=== PATIENT | female | born 1950 | race Caucasian/White ===

== ENCOUNTER 2018-06-14 12:57 | Day surgery (SDC) | payer MEDICARE ==
[2018-06-11 10:34] VITALS: BMI 24.4
[~2018-06-14 12:57] MED LIST: DEXAMETHASONE SOD PHOSPHATE 10 MG/ML 1 ML VIAL IV ONE; LACTATED RINGERS 1,000 ML IV SCH; MIDAZOLAM 2 MG/2 ML VIAL IV PRN; ONDANSETRON 4 MG/2 ML VIAL IVP ONE; ceFAZolin IN SWFI 2 GM/20 ML SYRINGE IVP ONE; fentaNYL (PF) 50 MCG/ML 2 ML AMP IV PRN
--- NOTE | 2018-06-14 15:38 | P.ONQ ---
Anesthesiology Proc Note - PNB - Peripheral Nerve Block Performed Left Supraclavicular Single Procedure Start Time: 13:49 Procedure Stop Time: 14:00 Indication: Analgesia, Requested by physician Specifically requested for management of pain by : Baudilio Webb Sedation Type: Sedate with meaningful contact maintained Preparation: Sterile Prep Position: Supine Needle Size: 50mm (2") (pumohank) Needle Gauge: 21 Technique: Ultrasound Injectate: 0.5% Ropivacaine (see comment for volume) (20 ml) Blood Aspirated: No Pain Paresthesia on Injection Noted: No Resistance on Injection: Normal Events: Uneventful and Well Tolerated
[2018-06-14] MEDS ORDERED: PROPOFOL 10 MG/ML 20 ML VIAL IV ONE (15:58)
[2018-06-14] MEDS ORDERED: LIDOCAINE 1% INJ 10MG/ML (20 ML MDV) ONE (15:58)
[2018-06-14] MEDS ORDERED: ePHEDrine SULFATE/0.9% NACL/PF 50 MG/5 ML SYRINGE IV ONE (15:58)
[2018-06-14] MEDS ORDERED: fentaNYL (PF) 50 MCG/ML 2 ML AMP ONE (15:58)
[2018-06-14] MEDS ORDERED: SUCCINYLCHOLINE CHLORIDE 100 MG/5 ML SYR IV ONE (15:58)
[2018-06-14] MEDS ORDERED: MIDAZOLAM 2 MG/2 ML VIAL ONE (15:58)
[2018-06-14] MEDS ORDERED: GLYCOPYRROLATE 0.2 MG/ML 2 ML VIAL ONE (15:58)
[2018-06-14] MEDS ORDERED: BUPIVACAIN-EPI 0.25%-1:200,000 30 ML VIAL SQ ONE (17:24)
[2018-06-14 18:02] VITALS: TEMP 98
[2018-06-14 18:31] VITALS: RESP 18
--- NOTE | 2018-06-14 19:01 | XR ---
EXAMINATION TYPE: XR wrist limited LT, FL guidance operating room DATE OF EXAM: 06/14/2018 CLINICAL HISTORY: ORIF of the left wrist. Fluoroscopy documentation. TECHNIQUE: Fluoroscopy. COMPARISON: None. FINDINGS: Fluoroscopic guidance was provided during procedure performed by Dr. Galvin. A total o f 19 seconds of fluoroscopic time was utilized during the procedure and 4 spot images was acquired du ring an open reduction internal fixation of the left wrist. IMPRESSION: As Above.
[2018-06-14 19:10] VITALS: BP 114/67; PULSE 63
--- NOTE | 2018-06-16 11:29 | P.OP ---
Date of Procedure: 06/14/18 Preoperative Diagnosis: Displaced left distal radius fracture Postoperative Diagnosis: Displaced left distal radius fracture Procedure(s) Performed: Open reduction and internal fixation of extra-articular left distal radius fracture Implants: Biomet Crosslock DVR locking volar radius plate Anesthesia: veronica MCMILLAN Surgeon: Baudilio Webb Business Relations Manager #1: Leticia Casarez Estimated Blood Loss (ml): 10 Pathology: none sent Condition: stable Disposition: PACU Indications for Procedure: The patient is a 67 year-old female who sustained a traumatic injury to her left wrist, resulting in a displaced distal radius fracture. Surgical treatment was recommended. Risks and benefits were discussed in the office; she expressed understanding and wished to proceed with surgery. The operative site was confirmed and marked preoperatively. Description of Procedure: After informed consent was obtained, the patient was administered a regional nerve block by the anesthesia team then brought to the operating suite. She was placed on the operating table in the supine position with the operative limb on an arm board. All bony prominences were well padded. General anesthesia was administered uneventfully. Prophylactic antibiotics were administered. A tourniquet was placed on the left upper arm which was then prepped and draped in usual sterile fashion. A timeout was performed which confirmed the patient, the operative side, the site and the procedure to be performed. All team members expressed agreement. The limb was exsanguinated with an Esmarch and the tourniquet was inflated. A standard volar FCR approach was utilized. The skin was incised sharply and subcutaneous tissue were spread, coagulating superficial vessels as needed. The FCR sheath was incised and the tendon was mobilized. Blunt dissection was used and the pronator quadratus was identified. This was sharply released along its radial border and & elevated ulnarly. The fracture site was identified, running transversely across the metaphysis with mild comminution noted along the radial cortex. Manual reduction was attempted but residual deformity remained. A [place] elevator was used to gently release the fracture callous and impacted dorsal fragments. The reduction maneuver was repeated and satisfactory initial alignment was confirmed with fluoroscopy. The appropriate plate was selected based on the patients fracture pattern and anatomy. The plate was positioned on the volar radius and provisionally pinned in place. The plate position was confirmed on imaging and found to be satisfactory. A cortical screw was drilled , measured and inserted into the oblong hole of the shaft. Locking screws were drilled, measured and inserted distally, confirming length and trajectory with fluoroscopy. The provisional K-wires were removed. An additional cortical screw was drilled and inserted to secure the plate to the metaphysis. Final x-rays were obtained, which revealed good reduction of the fracture. A 20-degree inclined lateral view was obtained to confirm extra-articular screw placement. The wrist was then ranged under live fluoroscopy and no motion of the fracture fragments or fixation construct was appreciated. The tourniquet was released and good hemostasis was obtained with electrocautery. The wound was copiously irrigated. The subcutaneous tissues were reapproximated with 3-0 Vicryl suture. The incision was closed with interrupted 4-0 nylon suture. Marcaine with epinephrine was injected into the perioperative subcutaneous tissues for postoperative pain control and hemostasis. A sterile dressing was applied followed by a resting volar splint. All sponge and needle counts were correct at the end of the case. The patient tolerated the procedure well. Anesthesia was reversed uneventfully and she was taken to the recovery room in stable condition.
== END 2018-06-14 19:14 | disposition home or self-care (01) ==
LOC: OR 12:57
PROVIDERS: ATTEND Orthopaedic Surgery
DX: S52.552A Other extraarticular fracture of lower end of left radius, initial encounter for closed fracture (principal); W19.XXXA Unspecified fall, initial encounter; I11.9 Hypertensive heart disease without heart failure; E03.9 Hypothyroidism, unspecified; H91.90 Unspecified hearing loss, unspecified ear; I48.91 Unspecified atrial fibrillation; Z79.01 Long term (current) use of anticoagulants; Z79.82 Long term (current) use of aspirin; Z79.890 Hormone replacement therapy; Z79.899 Other long term (current) drug therapy; Z88.1 Allergy status to other antibiotic agents; Z88.5 Allergy status to narcotic agent; Z88.0 Allergy status to penicillin; Z88.2 Allergy status to sulfonamides; Z86.718 Personal history of other venous thrombosis and embolism; Z87.891 Personal history of nicotine dependence
CPT/HCPCS: 25607; 73100; 64413; C1713; J2250; J1100; J2405; J2001; J3010; J0330; J2704; J0690; 64490

== ENCOUNTER → 2020-06-18 | Outpatient (CLI) | payer MEDICARE ==
--- NOTE | 2020-06-18 14:22 | CT ---
EXAMINATION TYPE: CT knee LT wo con DATE OF EXAM: 06/18/2020 COMPARISON: No prior HISTORY: Left knee pain post injury CT DLP: 399.6 mGycm Automated exposure control for dose reduction was used. FINDINGS: There appears to be a lipohemarthrosis involving the suprapatellar bursa. There is a comminuted displ aced fracture of the patella with significant soft tissue edema or hematoma. Narrowing of the medial compartment of the knee joint with chondrocalcinosis compatible with either o steoarthritis or depositional arthropathy. No erosive changes. Mild diffuse osteopenia. No additional areas of acute fracture. IMPRESSION: DISPLACED COMMINUTED FRACTURE OF THE PATELLA WITH LARGE AREA OF SOFT TISSUE EDEMA OR HEMATOMA. HEMORR HAGIC COMPONENT TO THE SUPRAPATELLAR BURSAL FLUID COLLECTION ALSO SUSPECTED. CORRELATE CLINICALLY.
== END | disposition home or self-care (01) ==
LOC: RADCTMAIN 12:11
PROVIDERS: ATTEND Orthopaedic Surgery
DX: S82.042A Displaced comminuted fracture of left patella, initial encounter for closed fracture (principal)

== ENCOUNTER 2020-06-25 11:06 | Day surgery (SDC) | payer MEDICARE ==
[2020-06-22 12:07] VITALS: BMI 24.4
[~2020-06-25 11:06] MED LIST changes: -DEXAMETHASONE SOD PHOSPHATE 10 MG/ML 1 ML VIAL IV ONE; +DEXAMETHASONE SOD PHOSPHATE 4 MG/ML 1 ML VIAL IV ONE; +Pre Op ABX Message 1 EACH MISC MISCELLANE ONE; -ceFAZolin IN SWFI 2 GM/20 ML SYRINGE IVP ONE
[2020-06-25 11:56] LABS: HCT 26.9 % (34.0-46.0); HGB 8.8 gm/dL (11.4-16.0); MCH 29.8 pg (25.0-35.0); MCHC 32.6 g/dL (31.0-37.0); MCV 91.5 fL (80.0-100.0); Mean Platelet Volume 8.7; Platelet Count 245 k/uL (150-450); RBC 2.95 m/uL (3.80-5.40); RDW 15.2 % (11.5-15.5); WBC 6.6 k/uL (3.8-10.6)
[2020-06-25 12:04] LABS: Calcium 10.5 mg/dL (8.4-10.2); Potassium 4.1 mmol/L (3.5-5.1)
[2020-06-25] MEDS ORDERED: fentaNYL (PF) 50 MCG/ML 2 ML AMP ONE (12:09)
[2020-06-25] MEDS ORDERED: PROPOFOL 10 MG/ML 20 ML VIAL IV ONE (12:09)
[2020-06-25] MEDS ORDERED: HYDROmorphone (PF) 1 MG/ML ONE (12:09)
[2020-06-25] MEDS ORDERED: SUCCINYLCHOLINE CHLORIDE 100 MG/5 ML SYR IV ONE (12:09)
[2020-06-25] MEDS ORDERED: ROPIVACAINE 5 MG/ML 30 ML VIAL ONE (12:09)
[2020-06-25] MEDS ORDERED: ePHEDrine SULFATE/0.9% NACL/PF 50 MG/5 ML SYRINGE IV ONE (12:09)
[2020-06-25] MEDS ORDERED: LIDOCAINE 1% INJ 10MG/ML (20 ML MDV) ONE (12:09)
[2020-06-25] MEDS ORDERED: ceFAZolin 1,000 MG in SODIUM CHLORIDE 0.9% 1,000 ML IRRIGATION ONE (13:39)
[2020-06-25] MEDS ORDERED: LACTATED RINGERS 1,000 ML IV ONE (13:54)
[2020-06-25] MEDS ORDERED: ONDANSETRON 4 MG/2 ML VIAL IVP ONE (14:19)
[2020-06-25 14:27] VITALS: TEMP 97.5
[2020-06-25] MEDS ORDERED: HYDROmorphone 0.5 MG/0.5 ML SYRINGE IVP ONE (14:40)
--- NOTE | 2020-06-25 15:26 | P.ANPRN ---
Procedure Note - Anesthesia - Nerve Block Performed Left Adductor Canal Single Time Out Performed: Yes Date of Procedure: 06/25/20 Procedure Start Time: 15:14 Procedure Stop Time: 15:22 Location of Patient: Phase I Indication: Acute Post-Operative Pain, Requested by Surgeon Specifically requested for management of pain by DrJoe: Armando Benitez Sedation Type: Awake Preparation: Sterile Prep Position: Supine Needle Types: Pajunk Needle Gauge: 21 Ultrasound used to visualize needle placement: Yes Ultrasound used to observe medication spread: Yes Injectate: 0.5% Ropivacaine (see comment for volume) (20 ml plus dexamethason 4 mg) Blood Aspirated: No Pain Paresthesia on Injection Noted: No Resistance on Injection: Normal Image Stored and Saved: Yes Events: Uneventful and Well Tolerated
--- NOTE | 2020-06-25 16:06 | XR ---
EXAMINATION TYPE: XR knee limited LT DATE OF EXAM: 06/25/2020 COMPARISON: NONE TECHNIQUE: Two views submitted HISTORY: Post op FINDINGS: 2 images demonstrate a surgical instrument adjacent to a fracture of the patella. Resolution limited. IMPRESSION: 1. Intraoperative image
[2020-06-25 16:14] VITALS: BP 119/59; PULSE 77; RESP 18
--- NOTE | 2020-06-25 16:25 | P.OP ---
Date of Procedure: 06/25/20 Procedure(s) Performed: PREOPERATIVE DIAGNOSES: 1. Left knee comminuted displaced patellar fracture; 2. Severe osteoporosis POSTOPERATIVE DIAGNOSES: 1. Left knee comminuted displaced patellar fracture; 2. Severe osteoporosis PROCEDURES PERFORMED: 1. Left knee patellar fracture open reduction and internal fixation (fiber tape tension band fixation) ANESTHESIA: Gen. HYDROGRAPHY TEACHER: Arin Perdue PA-C (assistance with exposure, hemostasis, retraction, fixation, closure, dressing, splint) COMPLICATIONS: None ESTIMATED BLOOD LOSS: Less than 25 mL. DISPOSITION: To post-anesthesia care unit INDICATIONS: Mrs. Chun is a 69-year-old female with a history of falling and sustaining a severe comminuted fracture of left patella. Preoperative CT scanning has shown a comminuted fracture with significant displacement. The fracture is displaced by 3 cm and there is functional disruption of the extensor mechanism. We have discussed open reduction and internal fixation of the patella in detail in the office and the patient wishes to proceed. I have discussed potential risks and complications as per the preoperative office note. The consent form has been signed. PROCEDURE: After appropriate consent was obtained, the patient was taken to the operating room placed in the supine position. Anesthesia was initiated, and after confirmation of adequate anesthesia, the patient was carefully positioned. Care was taken to make sure that all pressure points were adequately padded. Prepping and draping were completed in the usual aseptic fashion using ChloraPrep. Timeout was called, confirming patient identity, side, procedure, and administration of antibiotics. A pneumo tourniquet was used high on the left thigh. The limb was exsanguinated with an Esmarch bandage and the tourniquet was then inflated to 250 mmHg. Midline longitudinal incision was created directly over the patella for a distance of approximately 5 inches. It was carried down through skin into subcutaneous tissues and to patellar fascia. Full thickness subcutaneous flaps were created medially and laterally affording good exposure of the entire patella. The fracture was clearly visible and was cleaned of hematoma and any interposed tissue with a curette. It was noted based on preoperative CT scanning as well as visual inspection of the fragments that the distal portion of the fracture was significantly comminuted and the bone was crushed that no decent fixation was able to be passed area to cannulated screws were attempted to be placed but they hadbroken purchase within the distal fragment and were removed. The repair the extensor mechanism thus proceeded as follows. A #2 FiberWire Krakw type stitch was placed within the patellar tendon and exited through the anterior aspect of the distal fragments. Through hole tunnels were created in the proximal fragment exiting on the superior aspect of the proximal fragment and a suture passer was used to deliver the sutures through the tunnels. Subsequent, the fracture was able to be reduced with extension of the knee and the sutures were provisionally tied with a releasing knot until C-arm imaging was able to confirm acceptable reduction. Once this was confirmed, the sutures were tied down securely at the superior aspect of the patella. Next, a [id number] suture was passed through the bone fragments using a drill followed by a suture passer. The suture was tied at the inferior medial aspect of the patella. C-arm imaging confirmed that the fracture reduction was not anatomic however it was acceptable for the amount of comminution of the distal fragment. The knee was then gently bent to 90 to test the repair. The repair was completely stable and there was no evidence of significant patellofemoral crepitus. Testing beyond 90 was not performed. Subsequently, the wound was thoroughly irrigated with normal saline and final hemostasis was obtained using electrocautery. Closure was performed using 2-0 Vicryl suture for the subcutaneous tissues and prepatellar bursa followed by standard skin closure wit h strata fix and Dermabond. Opteform was applied. Sterile dressing was applied and a knee immobilizer was applied. Patient tolerated the procedure well and taken to recovery room in stable condition. Sponge and needle counts were correct.
--- NOTE | 2020-06-26 06:52 | FL ---
Fluoroscopy History: Patellar fracture 21 SEC FLUORO, 2 IMAGES SCANNED
== END 2020-06-25 16:40 | disposition home or self-care (01) ==
LOC: OR 11:06
PROVIDERS: ATTEND Orthopaedic Surgery
DX: S82.042A Displaced comminuted fracture of left patella, initial encounter for closed fracture (principal); M80.00XA Age-related osteoporosis with current pathological fracture, unspecified site, initial encounter for fracture; E03.9 Hypothyroidism, unspecified; H91.90 Unspecified hearing loss, unspecified ear; N18.32 Chronic kidney disease, stage 3b; I48.0 Paroxysmal atrial fibrillation; K57.90 Diverticulosis of intestine, part unspecified, without perforation or abscess without bleeding; I50.9 Heart failure, unspecified; M10.9 Gout, unspecified; K21.9 Gastro-esophageal reflux disease without esophagitis; E83.52 Hypercalcemia; K08.89 Other specified disorders of teeth and supporting structures; I13.0 Hypertensive heart and chronic kidney disease with heart failure and stage 1 through stage 4 chronic kidney disease, or unspecified chronic kidney disease; Z79.82 Long term (current) use of aspirin; Z79.899 Other long term (current) drug therapy; Z79.891 Long term (current) use of opiate analgesic; Z79.01 Long term (current) use of anticoagulants; Z79.890 Hormone replacement therapy; Z87.09 Personal history of other diseases of the respiratory system; Z97.3 Presence of spectacles and contact lenses; Z86.718 Personal history of other venous thrombosis and embolism; Z88.5 Allergy status to narcotic agent; Z88.1 Allergy status to other antibiotic agents; Z88.0 Allergy status to penicillin; Z88.2 Allergy status to sulfonamides; Z87.81 Personal history of (healed) traumatic fracture; Z90.89 Acquired absence of other organs; Z98.51 Tubal ligation status; Z90.710 Acquired absence of both cervix and uterus; Z98.890 Other specified postprocedural states; Z83.3 Family history of diabetes mellitus; Z82.5 Family history of asthma and other chronic lower respiratory diseases; Z82.49 Family history of ischemic heart disease and other diseases of the circulatory system; W01.0XXA Fall on same level from slipping, tripping and stumbling without subsequent striking against object, initial encounter; Y92.019 Unspecified place in single-family (private) house as the place of occurrence of the external cause
CPT/HCPCS: 64447; 76942; 80048; 85027; 73560; 27524; J1100; J2405; J0690; J2001; J3010; J1170 ×2; J2795; J0330; J2704